=== PATIENT | male | born 1955 | race Caucasian/White ===

== ENCOUNTER → 2019-01-21 | Outpatient (REF) | payer OTHER | LOC: M SFHCLERA 10:18 | PROVIDERS: ATTEND Physician Assistant | DX: J02.9 Acute pharyngitis, unspecified (principal) ==

== ENCOUNTER 2024-09-02 22:19 | Observation (INO) | payer MEDICARE ==
[~2024-09-02] VITALS: Ht 179.1 cm; Wt 94.1 kg
[2024-09-02 22:53] LABS: BASO % 0.6 % (0.0-1.0); EOS # 0.1 10^3/uL (0.0-0.5); EOS % 2.1 % (0.0-3.0); HEMATOCRIT 42.3 % (42.0-52.0); HEMOGLOBIN 15.1 g/dl (13.5-17.5); LYMPH % 19.4 % (24.0-44.0); MEAN CORPUSCULAR HEMOGLOBIN 30.3 pg (27.0-33.0); MEAN CORPUSCULAR HGB CONC 35.7 g/dl (32.0-36.5); MEAN CORPUSCULAR VOLUME 84.9 fl (80.0-96.0); MONO # 0.5 10^3/uL (0.0-0.8); MONO % 9.9 % (2.0-8.0); NEUTROPHILS # 3.6 10^3/uL (1.5-8.5); NEUTROPHILS % 67.8 % (36.0-66.0); PLATELET COUNT, AUTOMATED 187 10^3/uL (150-450); RED BLOOD COUNT 4.98 10^6/uL (4.30-6.10); WHITE BLOOD COUNT 5.4 10^3/uL (4.0-10.0)
[2024-09-02 23:05] LABS: INR 0.97; PARTIAL THROMBOPLASTIN TIME 24.2 SECONDS (24.8-34.2); PROTHROMBIN TIME 13.1 SECONDS (12.5-14.5)
[2024-09-02 23:18] LABS: ETHYL ALCOHOL (ETHANOL) 0.009 % (0.000-0.010)
[2024-09-02 23:19] LABS: BLOOD UREA NITROGEN 18 MG/DL (9-23); CALCIUM LEVEL 8.9 MG/DL (8.3-10.6); CARBON DIOXIDE LEVEL 28 MMOL/L (20-31); CHLORIDE LEVEL 102 MMOL/L (98-107); CK-MB VALUE MASS 2.3 NG/ML (<3.6); CREATININE FOR GFR 0.87 MG/DL (0.70-1.30); GLOMERULAR FILTRATION RATE > 60.0 (>49); GLUCOSE, FASTING 94 MG/DL (74-106); POTASSIUM SERUM 3.7 MMOL/L (3.5-5.1); SODIUM LEVEL 135 MMOL/L (136-145)
[2024-09-02 23:22] LABS: THYROID STIMULATING HORMONE 8.802 uIU/ML (0.55-4.78)
[2024-09-02 23:24] LABS: CPK CREATINE PHOSPHOKINASE 144 U/L (46-171); MB/CK RELATIVE INDEX 1.59 (< OR =4)
[2024-09-03 00:05] LABS: FREE T4 1.02 NG/DL (0.89-1.76)
[2024-09-03 00:25] LABS: CK-MB VALUE MASS 1.7 NG/ML (<3.6)
[2024-09-03 00:29] LABS: MB/CK RELATIVE INDEX 1.14 (< OR =4)
[2024-09-03] MEDS ORDERED: HOME MED LIST COMPLETE! XX SCH (02:10)
[2024-09-03] MEDS ORDERED: ACETAMINOPHEN 325 MG TAB PO PRN (02:20)
[2024-09-03] MEDS ORDERED: MOM 30ML SUSPENSION UDC PO PRN (02:20)
[2024-09-03 03:22] VITALS: BP 168/80; TEMP 98.1; O2SAT 97
[2024-09-03 03:28] LABS: ALBUMIN 3.8 G/DL (3.2-5.2); ALKALINE PHOSPHATASE 83 U/L (40-129); ALT/SGPT 21 U/L (7.0-40); AST/SGOT 15 U/L (<34); BILIRUBIN,DIRECT 0.1 MG/DL (<0.4); BILIRUBIN,TOTAL 0.4 MG/DL (0.3-1.2); MAGNESIUM LEVEL 1.9 MG/DL (1.8-2.4); TOTAL PROTEIN 6.6 G/DL (5.7-8.2)
[2024-09-03 03:30] LABS: PROLACTIN 24.27 NG/ML (2.1-17.7)
[2024-09-03 04:09] LABS: AMPHETAMINES LEVEL URINE NEGATIVE (NEGATIVE); BARBITURATES URINE NEGATIVE (NEGATIVE); BENZODIAZEPINES URINE NEGATIVE (NEGATIVE)
[2024-09-03 04:10] LABS: COCAINE METABOLITE URINE NEGATIVE (NEGATIVE); METHADONE URINE NEGATIVE (NEGATIVE); OPIATES URINE NEGATIVE (NEGATIVE); PHENCYCLIDINE URINE NEGATIVE (NEGATIVE)
[2024-09-03 04:11] LABS: CANNABINOIDS URINE POSITIVE (NEGATIVE)
[2024-09-03 06:43] LABS: HEMATOCRIT 42.7 % (42.0-52.0); HEMOGLOBIN 14.8 g/dl (13.5-17.5); MEAN CORPUSCULAR HEMOGLOBIN 29.4 pg (27.0-33.0); MEAN CORPUSCULAR HGB CONC 34.7 g/dl (32.0-36.5); MEAN CORPUSCULAR VOLUME 84.7 fl (80.0-96.0); PLATELET COUNT, AUTOMATED 183 10^3/uL (150-450); RED BLOOD COUNT 5.04 10^6/uL (4.30-6.10); WHITE BLOOD COUNT 6.1 10^3/uL (4.0-10.0)
[2024-09-03 07:06] LABS: BLOOD UREA NITROGEN 15 MG/DL (9-23); CALCIUM LEVEL 8.8 MG/DL (8.3-10.6); CARBON DIOXIDE LEVEL 29 MMOL/L (20-31); CHLORIDE LEVEL 104 MMOL/L (98-107); CREATININE FOR GFR 0.84 MG/DL (0.70-1.30); GLOMERULAR FILTRATION RATE > 60.0 (>49); GLUCOSE, FASTING 105 MG/DL (74-106); POTASSIUM SERUM 3.9 MMOL/L (3.5-5.1); SODIUM LEVEL 137 MMOL/L (136-145)
[2024-09-03 07:52] VITALS: BP 143/82; TEMP 98; O2SAT 96
[2024-09-03] MEDS: UNRESOLVED CLARIFICATION ENTRY XX STA (08:25)
[2024-09-03 09:55] VITALS: BP 143/80
[2024-09-03 09:56] VITALS: BP 166/84
[2024-09-03 09:58] VITALS: BP 147/72
[2024-09-03] MEDS: ENOXAPARIN 40MG/0.4ML SYRINGE (J1650 PER 10MG) SC SCH (11:07)
[2024-09-03] MEDS: FLUBLOK(EGGFREE) TRIVAL(24-25) VACCINE PF 0.5ML SYRINGE 18YRS & OLDER IM.IMMUN ONE (14:01)
== END 2024-09-03 14:54 | disposition home or self-care (01) ==
LOC: M ED 22:19 → EDBD 22:19 → M ED INP 22:20 → M PCU 09-03 03:28
PROVIDERS: ADMIT Internal Medicine; ATTEND Internal Medicine
DX: R55 Syncope and collapse (principal); I10 Essential (primary) hypertension; G47.30 Sleep apnea, unspecified
CPT/HCPCS: 36415; 70450; 71045; 80047; 80048; 80076; 80307; 82077; 82550; 82553; 83605; 83735; 84146; 84439; 84443; 84484; 85025; 85027; 85610; 85730; 90673; 93005; 93041; 93306; 94760; 96372; 97161; 97530; 99285; G0008; G0378; J1650

== ENCOUNTER → 2024-09-03 | Outpatient (CLI) | payer MEDICARE | LOC: M EKG 15:11 | PROVIDERS: ATTEND Internal Medicine | DX: R55 Syncope and collapse (principal) ==

== ENCOUNTER 2025-09-24 20:32 | Emergency (ER) | payer MEDICARE ==
[~2025-09-24] VITALS: Ht 177.8 cm; Wt 96.8 kg
[2025-09-24 21:17] LABS: BASO # 0.1 10^3/uL (0.0-0.2); BASO % 0.6 % (0.0-1.0); EOS # 0.1 10^3/uL (0.0-0.5); EOS % 1.6 % (0.0-3.0); LYMPH # 1.9 10^3/uL (1.5-5.0); LYMPH % 23.4 % (24.0-44.0); MONO # 0.8 10^3/uL (0.0-0.8); MONO % 9.3 % (2.0-8.0); NEUTROPHILS # 5.2 10^3/uL (1.5-8.5); NEUTROPHILS % 64.5 % (36.0-66.0); PLATELET COUNT, AUTOMATED 222 10^3/uL (150-450)
[2025-09-24 21:46] LABS: ALT/SGPT 21.0 U/L (7.0-40); AST/SGOT 17.0 U/L (<34); CALCIUM LEVEL 8.9 MG/DL (8.3-10.6); CARBON DIOXIDE LEVEL 30.0 MMOL/L (20-31); CHLORIDE LEVEL 99.0 MMOL/L (98-107); CREATININE FOR GFR 0.94 MG/DL (0.70-1.30); GLOMERULAR FILTRATION RATE 88.3 (>49); POTASSIUM SERUM 3.6 MMOL/L (3.5-5.1); SODIUM LEVEL 137.0 MMOL/L (136-145)
[2025-09-24 22:01] LABS: CK-MB VALUE MASS 2.1 NG/ML (<3.6)
[2025-09-24 22:03] LABS: CPK CREATINE PHOSPHOKINASE 118.0 U/L (46-171); MB/CK RELATIVE INDEX 1.77 (< OR =4)
[2025-09-24 22:09] LABS: INR 0.92
[2025-09-24] MEDS: ACETAMINOPHEN *IV* 1,000 MG in IV 1 EA IV ONE (22:21)
[2025-09-24] MEDS: NS 500 ML IV ONE (22:22)
[2025-09-24 22:56] LABS: CK-MB VALUE MASS 1.9 NG/ML (<3.6)
[2025-09-24 23:07] LABS: CPK CREATINE PHOSPHOKINASE 99.0 U/L (46-171); MB/CK RELATIVE INDEX 1.91 (< OR =4)
[2025-09-25 00:38] LABS: CK-MB VALUE MASS 2.0 NG/ML (<3.6)
[2025-09-25 00:41] LABS: CPK CREATINE PHOSPHOKINASE 88.0 U/L (46-171); MB/CK RELATIVE INDEX 2.27 (< OR =4)
[2025-09-25] MEDS ORDERED: ISOVUE-370 76% 100 ML VIAL As Ordered ONE (02:07)
[2025-09-25] MEDS: ONDANSETRON 4MG/2ML VIAL IV ONE (02:10)
[2025-09-25] MEDS: KETOROLAC 30 MG/ML 1 ML VIAL IV ONE (02:36)
[2025-09-25] MEDS: NS (Normal Saline) 0.9% 1,000 ML IV ONE (02:36)
[2025-09-25 03:19] LABS: CK-MB VALUE MASS 1.7 NG/ML (<3.6)
[2025-09-25 03:38] LABS: CPK CREATINE PHOSPHOKINASE 95.0 U/L (46-171); MB/CK RELATIVE INDEX 1.78 (< OR =4)
[2025-09-25] MEDS: cefTRIAXone SOD 1 GM in DEXTROSE 5% (D5W) ADV/MINI-BAG 50 ML IV ONE (03:58)
[2025-09-25 04:21] LABS: ALT/SGPT 524.0 U/L (7.0-40); AST/SGOT 612.0 U/L (<34)
[2025-09-25 04:34] LABS: KETONE, URINE AUTO RFX NEGATIVE (NEGATIVE); LEUKOCYTE ESTERASE UR AUTO RFX NEGATIVE (NEGATIVE); NITRITE, URINE AUTO RFX NEGATIVE (NEGATIVE); RBC, URINE AUTO RFX 3 /HPF (0-3); SQUAM EPITHELIAL CELL UR AURFX 0 /HPF (0-6); WBC, URINE AUTO RFX 0 /HPF (0-3)
[2025-09-25 08:37] LABS: ALT/SGPT 143.0 U/L (7.0-40); AST/SGOT 202.0 U/L (<34)
[2025-09-25] MEDS ORDERED: HOME MED LIST COMPLETE! XX SCH (11:55)
[2025-09-25 13:53] LABS: BASO # 0.0 10^3/uL (0.0-0.2); BASO % 0.3 % (0.0-1.0); EOS # 0.0 10^3/uL (0.0-0.5); EOS % 0.0 % (0.0-3.0); LYMPH # 0.5 10^3/uL (1.5-5.0); LYMPH % 4.3 % (24.0-44.0); MONO # 0.9 10^3/uL (0.0-0.8); MONO % 8.1 % (2.0-8.0); NEUTROPHILS # 9.3 10^3/uL (1.5-8.5); NEUTROPHILS % 87.0 % (36.0-66.0)
[2025-09-25] MEDS: ACETAMINOPHEN *IV* 1,000 MG in IV 1 EA IV ONE (13:55)
[2025-09-25 14:24] LABS: ALT/SGPT 592.0 U/L (7.0-40); AST/SGOT 402.0 U/L (<34)
[2025-09-25] MEDS: PIPERACILLIN/TAZOBACTAM SOD 3.375 GM in DEXTROSE 5% (D5W) ADV/MINI-BAG 50 ML IV ONE (17:17)
[2025-09-25] MEDS: NS (Normal Saline) 0.9% 1,000 ML IV SCH (19:28)
[2025-09-25 22:42] VITALS: TEMP 100.2
[2025-09-25 22:45] VITALS: BP 140/65; O2SAT 92
[2025-09-25] MEDS ORDERED: PIPERACILLIN/TAZOBACTAM SOD 3.375 GM in DEXTROSE 5% (D5W) ADV/MINI-BAG 50 ML IV ONE (23:00)
== END 2025-09-25 22:57 | disposition short-term general hospital (02) ==
LOC: M ED 20:32
DX: K81.0 Acute cholecystitis (principal)
CPT/HCPCS: 71046; 71275; 74174; 74181; 76705; 80048; 80076; 81001; 82550; 82553; 83690; 83880; 84484; 85025; 85610; 85730; 87486; 87581; 87633; 87798; 93005; 96361; 96365; 96366; 96367; 96375; 99285; J0134; J0696; J1885; J2405; J2543; Q9967